=== PATIENT | male | born 1955 | race Two or more races ===

== ENCOUNTER 2020-08-08 08:00 | Inpatient (IN) | payer OTHER ==
[~2020-08-08] VITALS: Ht 172.7 cm; Wt 90.7 kg
[2020-08-08] MEDS ORDERED: TOPROL XL25 M1 PO (13:27)
[2020-08-08] MEDS ORDERED: ATORVASTATIN CA10 MG PO (13:28)
[2020-08-14] MEDS ORDERED: DICLOFENAC POTA50 MG (10:40)
[2020-08-18] MEDS ORDERED: GABAPENTIN300 MG PO (11:36)
[2020-08-18] MEDS ORDERED: INTESTINEX680 M1 PO (11:37)
[2020-08-18] MEDS ORDERED: PERCOCET 5-3251 EACH PO (11:38)
== END 2020-08-18 12:04 | disposition home or self-care (01) | DRG 331 ==
LOC: SURH 08-14 07:00 → O/R 08-14 08:15 → SURG 08-14 17:58
PROVIDERS: ADMIT Surgery; ATTEND Surgery
PROC: 3E0F7SF Introduction of Other Gas into Respiratory Tract, Via Natural or Artificial Opening (ICD-10-PCS; 2020-08-14)
PROC: 0DBN4ZZ Excision of Sigmoid Colon, Percutaneous Endoscopic Approach (ICD-10-PCS; principal; 2020-08-14 07:00)
DX: K57.32 Diverticulitis of large intestine without perforation or abscess without bleeding (principal); K63.5 Polyp of colon; D64.9 Anemia, unspecified; I10 Essential (primary) hypertension; E66.9 Obesity, unspecified; E78.5 Hyperlipidemia, unspecified; R73.01 Impaired fasting glucose

== ENCOUNTER 2020-08-13 06:16 | Day surgery (SDC) | payer OTHER ==
[~2020-08-13 06:16] MED LIST: ATORVASTATIN CA10 MG PO; TOPROL XL25 M1 PO
[2020-08-14] MEDS ORDERED: DICLOFENAC POTA50 MG (10:40)
== END 2020-08-13 10:15 | disposition home or self-care (01) ==
LOC: AMB-ENDOS 06:16
PROVIDERS: ATTEND Surgery
DX: D12.2 Benign neoplasm of ascending colon (principal); K64.0 First degree hemorrhoids